=== PATIENT | male | born 1985 | race African-American/Black ===

== ENCOUNTER 2021-06-08 18:12 | Emergency (ER) | payer OTHER ==
[~2021-06-08] VITALS: Ht 162.6 cm; Wt 73.5 kg
[2021-06-08 18:17] VITALS: BP 139/102
--- NOTE | 2021-06-08 20:02 | NUR ---
ERMD EVALUATING PATIENT IN TRIAGE ROOM.
[2021-06-08] MEDS ORDERED: PRED20TA5 PO (20:14)
[2021-06-08] MEDS ORDERED: TRAM50TA3 PO (20:14)
[2021-06-08 20:30] VITALS: BP 136/99
--- NOTE | 2021-06-08 20:30 | NUR ---
Patient discharged with v/s stable. Written and verbal after care instructions given and explained. Patient alert, oriented and verbalized understanding of instructions. Ambulatory with steady gait. All questions addressed prior to discharge. ID band removed. Patient advised to follow up with PMD. Rx of TRAMADOL,PREDNISONE given. Patient educated on indication of medication including possible reaction and side effects. Opportunity to ask questions provided and answered.
== END 2021-06-08 20:30 | disposition home or self-care (01) ==
LOC: MED 18:12
DX: B02.22 Postherpetic trigeminal neuralgia (principal)
CPT/HCPCS: 99283